=== PATIENT | male | born 1940 | race Caucasian/White ===

== ENCOUNTER → 2016-12-12 | Outpatient (CLI) | payer OTHER ==
[~2016-12-12] MED LIST: ATOR20TA PO; CHOL20002 PO; GABA300C10 PO; HYDR-882 PO; LISI-170 PO; METO10TA2 PO; METO25TA35 PO; MULT-412 PO; NAPR500T8 PO; OMEG1CAP6 PO; OMEP-110 PO; TAMS0.4C2 PO; TRAZ100T15 PO; UBID1CAP52 PO; ZOLP10TA5 PO
== END | disposition home or self-care (01) ==
LOC: STAR 10:05
PROVIDERS: ATTEND Internal Medicine
DX: Z01.810 Encounter for preprocedural cardiovascular examination (principal); K22.710 Barrett's esophagus with low grade dysplasia
CPT/HCPCS: 93005

== ENCOUNTER 2016-12-25 10:47 | Inpatient (IN) | payer OTHER ==
[~2016-12-25] VITALS: Ht 175.3 cm; Wt 77.2 kg
[2016-12-25] MEDS ORDERED: DILTIAZEM 125 MG in DEXTROSE 5% 100 ML IV SCH (11:22)
[2016-12-25] MEDS ORDERED: DILTIAZEM 5 MG/ML, 5ML IV ONE (11:30)
[2016-12-25] MEDS ORDERED: SODIUM CHLORIDE FLUSH 10ML SYR IVF ONE (11:30)
[2016-12-25] MEDS ORDERED: ASPIRIN 81 MG TABLET CHEW PO ONE (11:30)
[2016-12-25] MEDS ORDERED: ASPIRIN 81 MG TABLET CHEW ONE (11:32)
[2016-12-25] MEDS ORDERED: DILTIAZEM 5 MG/ML, 5ML ONE (11:33)
[2016-12-25 12:12] LABS: BLOOD UREA NITROGEN 12 mg/dL (7-18)
[2016-12-25 12:24] LABS: ASPARTATE AMINO TRANSFERASE 35 U/L (15-37)
[2016-12-25] MEDS ORDERED: SODIUM CHLORIDE FLUSH 10ML SYR IVF PRN (13:00)
[2016-12-25] MEDS ORDERED: ONDANSETRON ODT 4 MG PO PRN (13:30)
[2016-12-25] MEDS ORDERED: ONDANSETRON 2MG/ML, 2ML IVPush PRN (13:30)
[2016-12-25] MEDS ORDERED: LABETALOL 5MG/ML, 20ML IVPush PRN (13:30)
[2016-12-25] MEDS ORDERED: POLYETHYLENE GLYCOL 17 GM PACKET PO PRN (13:30)
[2016-12-25] MEDS ORDERED: GUAIFENESIN/DM 200-20MG, 10ML UDC PO PRN (13:30)
[2016-12-25] MEDS ORDERED: ENOXAPARIN 40 MG/0.4 ML SQ SCH (13:30)
[2016-12-25 14:14] LABS: IS PT STATUS REG ER OR PRE ER? YES
[2016-12-25] MEDS ORDERED: ALBUTEROL/IPRATROPIUM 2.5MG/0.5MG, 3 ML ONE (14:24)
[2016-12-25] MEDS: ALBUTEROL/IPRATROPIUM 2.5MG/0.5MG, 3 ML NPPB SCH ×2 (14:45→21:10)
[2016-12-25] MEDS ORDERED: ALBUTEROL/IPRATROPIUM 2.5MG/0.5MG, 3 ML NPPB SCH (15:00)
[2016-12-25] MEDS ORDERED: ALBUTEROL/IPRATROPIUM 2.5MG/0.5MG, 3 ML NPPB PRN (15:00)
[2016-12-25] MEDS ORDERED: DILTIAZEM 5 MG/ML, 5ML IVPush PRN (15:00)
[2016-12-25 15:44] VITALS: BP 130/70
[2016-12-25] MEDS: GABAPENTIN 300 MG CAPSULE PO SCH ×2 (17:48→21:50)
[2016-12-25] MEDS: SUCRALFATE 1 GM/10 ML UDC PO SCH ×2 (17:48→23:19)
[2016-12-25] MEDS: ENOXAPARIN 80 MG/0.8 ML SQ SCH (17:49)
[2016-12-25 19:31] LABS: IS PT STATUS REG ER OR PRE ER? NO
[2016-12-25 20:22] VITALS: BP_SYST 158; BP_SYST 166; BP_DIAS 72; BP_DIAS 85
[2016-12-25] MEDS ORDERED: LISINOPRIL 20 MG TABLET PO SCH (21:00)
[2016-12-25] MEDS ORDERED: ATORVASTATIN 20 MG TABLET PO SCH (21:00)
[2016-12-25] MEDS: HYDROcodone/APAP 5/325 TABLET PO PRN (21:49)
[2016-12-25] MEDS: ZOLPIDEM 10MG TABLET PO SCH (21:49)
[2016-12-25] MEDS: OMEPRAZOLE 20 MG CAPSULE.DR PO SCH (21:50)
[2016-12-25] MEDS: TAMSULOSIN 0.4 MG CAP.ER.24H PO SCH (21:50)
[2016-12-25] MEDS: ATORVASTATIN 20 MG TABLET PO SCH (21:51)
[2016-12-25] MEDS: TRAZODONE 100MG TABLET PO SCH (21:51)
[2016-12-26] MEDS: DILTIAZEM 125 MG in SODIUM CHLORIDE 0.9% 100 ML IV PRN ×2 (00:27→13:48)
[2016-12-26 03:46] VITALS: BP 128/72
[2016-12-26] MEDS: ENOXAPARIN 80 MG/0.8 ML SQ SCH (04:32)
[2016-12-26] MEDS: SUCRALFATE 1 GM/10 ML UDC PO SCH ×4 (05:42→23:35)
[2016-12-26] MEDS: ASPIRIN 81 MG TABLET EC PO SCH (05:42)
[2016-12-26 06:07] LABS: BLOOD UREA NITROGEN 14 mg/dL (7-18)
[2016-12-26 06:11] LABS: ASPARTATE AMINO TRANSFERASE 19 U/L (15-37)
[2016-12-26] MEDS: ALBUTEROL/IPRATROPIUM 2.5MG/0.5MG, 3 ML NPPB SCH ×3 (06:45→19:37)
[2016-12-26 07:11] VITALS: BP 103/65
[2016-12-26] MEDS: MULTIVITAMIN 1 TABLET PO SCH (11:54)
[2016-12-26] MEDS: CHOLECALCIFEROL 1,000 UNIT TABLET PO SCH (11:54)
[2016-12-26] MEDS: SENNA/DOCUSATE TABLET PO SCH (11:54)
[2016-12-26] MEDS: OMEPRAZOLE 20 MG CAPSULE.DR PO SCH ×2 (11:55→20:29)
[2016-12-26] MEDS: GABAPENTIN 300 MG CAPSULE PO SCH ×3 (11:55→20:29)
[2016-12-26] MEDS: DILTIAZEM 120 MG CAP.ER.12H PO SCH ×2 (12:45→20:28)
[2016-12-26 13:44] VITALS: BP 121/64
[2016-12-26] MEDS: DILTIAZEM 5 MG/ML, 5ML IVPush PRN (15:59)
[2016-12-26 18:57] VITALS: BP 164/71
[2016-12-26] MEDS: ZOLPIDEM 10MG TABLET PO SCH (20:28)
[2016-12-26] MEDS: APIXABAN 5 MG TABLET PO SCH (20:29)
[2016-12-26] MEDS: ATORVASTATIN 20 MG TABLET PO SCH (20:29)
[2016-12-26] MEDS: TAMSULOSIN 0.4 MG CAP.ER.24H PO SCH (20:30)
[2016-12-26] MEDS: TRAZODONE 100MG TABLET PO SCH (20:30)
[2016-12-27] VITALS (8 sets, daily range): BP systolic 90–176; BP diastolic 60–93
[2016-12-27] MEDS: ASPIRIN 81 MG TABLET EC PO SCH (05:30)
[2016-12-27] MEDS: SUCRALFATE 1 GM/10 ML UDC PO SCH ×4 (05:30→23:44)
[2016-12-27] MEDS ORDERED: DILTIAZEM 125 MG in SODIUM CHLORIDE 0.9% 100 ML IV PRN (08:00)
[2016-12-27] MEDS: ALBUTEROL/IPRATROPIUM 2.5MG/0.5MG, 3 ML NPPB SCH ×3 (08:00→20:38)
[2016-12-27] MEDS ORDERED: REGADENOSON 0.4 MG/5 ML SYRINGE ONE (08:10)
[2016-12-27] MEDS: OMEPRAZOLE 20 MG CAPSULE.DR PO SCH ×2 (08:39→21:32)
[2016-12-27] MEDS: APIXABAN 5 MG TABLET PO SCH ×2 (08:39→21:32)
[2016-12-27] MEDS: GABAPENTIN 300 MG CAPSULE PO SCH ×3 (08:39→21:32)
[2016-12-27] MEDS: MULTIVITAMIN 1 TABLET PO SCH (08:39)
[2016-12-27] MEDS: CHOLECALCIFEROL 1,000 UNIT TABLET PO SCH (08:39)
[2016-12-27] MEDS: DILTIAZEM 120 MG CAP.ER.12H PO SCH (08:44)
[2016-12-27] MEDS: SENNA/DOCUSATE TABLET PO SCH (08:44)
[2016-12-27] MEDS: DILTIAZEM 5 MG/ML, 5ML IVPush PRN (08:45)
[2016-12-27] MEDS ORDERED: FILTER 0.22 MICRON IV PRN (15:00)
[2016-12-27] MEDS ORDERED: AMIODARONE 150 MG in DEXTROSE 5% 100 ML IV ONE (15:00)
[2016-12-27] MEDS ORDERED: AMIODARONE 900 MG in DEXTROSE 5% 482 ML IV PRN (15:00)
[2016-12-27] MEDS ORDERED: METOPROLOL TARTRATE 25 MG TABLET PO SCH (18:00)
[2016-12-27] MEDS ORDERED: SODIUM CHLORIDE 0.9%, 500ML IVBOLUS ONE (18:30)
[2016-12-27] MEDS ORDERED: DILTIAZEM 120 MG CAP.ER.12H PO SCH (21:00)
[2016-12-27] MEDS: ATORVASTATIN 20 MG TABLET PO SCH (21:31)
[2016-12-27] MEDS: ZOLPIDEM 10MG TABLET PO SCH (21:31)
[2016-12-27] MEDS: TRAZODONE 100MG TABLET PO SCH (21:32)
[2016-12-27] MEDS: TAMSULOSIN 0.4 MG CAP.ER.24H PO SCH (21:32)
[2016-12-28 01:00] VITALS: BP 125/74
[2016-12-28 05:14] LABS: BLOOD UREA NITROGEN 16 mg/dL (7-18)
[2016-12-28] MEDS: SUCRALFATE 1 GM/10 ML UDC PO SCH ×4 (05:46→23:18)
[2016-12-28] MEDS: ASPIRIN 81 MG TABLET EC PO SCH (05:46)
[2016-12-28 06:32] VITALS: BP 140/80
[2016-12-28 09:26] LABS: IS PT STATUS REG ER OR PRE ER? NO
[2016-12-28] MEDS ORDERED: LORATADINE 10 MG TABLET PO PRN (09:30)
[2016-12-28] MEDS: APIXABAN 5 MG TABLET PO SCH ×2 (10:00→21:26)
[2016-12-28] MEDS: CHOLECALCIFEROL 1,000 UNIT TABLET PO SCH (10:00)
[2016-12-28] MEDS: SENNA/DOCUSATE TABLET PO SCH (10:00)
[2016-12-28] MEDS: OMEPRAZOLE 20 MG CAPSULE.DR PO SCH ×2 (10:00→21:26)
[2016-12-28] MEDS ORDERED: METOPROLOL TARTRATE 25 MG TABLET PO SCH ×2 (10:00→16:00)
[2016-12-28] MEDS: GABAPENTIN 300 MG CAPSULE PO SCH ×3 (10:00→21:26)
[2016-12-28] MEDS: AMIODARONE 200 MG TABLET PO SCH ×2 (10:00→21:26)
[2016-12-28] MEDS: MULTIVITAMIN 1 TABLET PO SCH (10:00)
[2016-12-28] MEDS ORDERED: METOPROLOL TARTRATE 25 MG TABLET PO ONE (10:09)
[2016-12-28] MEDS: ALBUTEROL/IPRATROPIUM 2.5MG/0.5MG, 3 ML NPPB SCH ×3 (10:13→22:30)
[2016-12-28 13:59] VITALS: BP 155/92
[2016-12-28] MEDS: METOPROLOL TARTRATE 25 MG TABLET PO SCH ×2 (16:47→23:18)
[2016-12-28] MEDS ORDERED: CEFTRIAXONE 500 MG in DEXTROSE 5% 50 ML IV SCH (17:00)
[2016-12-28 18:28] LABS: PATH.CAST-FLAG NOT PRESENT; SPERM-FLAG NOT PRESENT; SRC-FLAG NOT PRESENT; XTAL-FLAG NOT PRESENT; YLC-FLAG NOT PRESENT
[2016-12-28 18:52] VITALS: BP 127/74
[2016-12-28] MEDS: ATORVASTATIN 20 MG TABLET PO SCH (21:25)
[2016-12-28] MEDS: HYDROcodone/APAP 5/325 TABLET PO PRN (21:26)
[2016-12-28] MEDS: TAMSULOSIN 0.4 MG CAP.ER.24H PO SCH (21:26)
[2016-12-28] MEDS: ZOLPIDEM 10MG TABLET PO SCH (23:17)
[2016-12-28] MEDS: TRAZODONE 100MG TABLET PO SCH (23:18)
[2016-12-28 23:30] VITALS: BP 144/75
[2016-12-29 04:00] VITALS: BP 132/73
[2016-12-29] MEDS: METOPROLOL TARTRATE 25 MG TABLET PO SCH (04:47)
[2016-12-29] MEDS: ASPIRIN 81 MG TABLET EC PO SCH (04:47)
[2016-12-29] MEDS: SUCRALFATE 1 GM/10 ML UDC PO SCH ×2 (04:47→12:27)
[2016-12-29 07:16] LABS: BLOOD UREA NITROGEN 12 mg/dL (7-18)
[2016-12-29] MEDS: OMEPRAZOLE 20 MG CAPSULE.DR PO SCH (08:56)
[2016-12-29] MEDS: MULTIVITAMIN 1 TABLET PO SCH (08:57)
[2016-12-29] MEDS: CHOLECALCIFEROL 1,000 UNIT TABLET PO SCH (08:57)
[2016-12-29] MEDS: GABAPENTIN 300 MG CAPSULE PO SCH (08:57)
[2016-12-29] MEDS: APIXABAN 5 MG TABLET PO SCH (08:58)
[2016-12-29] MEDS: AMIODARONE 200 MG TABLET PO SCH (08:59)
[2016-12-29] MEDS: SENNA/DOCUSATE TABLET PO SCH (08:59)
[2016-12-29] MEDS ORDERED: METOPROLOL SUCCINATE 100 MG TAB.ER.24H PO SCH ×2 (09:00→11:00)
[2016-12-29 09:21] VITALS: BP 155/89
[2016-12-29] MEDS ORDERED: ASPI-621 PO (10:28)
[2016-12-29] MEDS ORDERED: APIX5TAB PO (10:28)
[2016-12-29] MEDS ORDERED: METO100T5 PO (10:28)
[2016-12-29] MEDS ORDERED: AMIO200T42 PO (10:28)
[2016-12-29] MEDS ORDERED: SUCR1TAB PO (10:28)
[2016-12-29] MEDS ORDERED: AMOX875T PO (10:28)
[2016-12-29] MEDS ORDERED: DILTIAZEM 120 MG CAP.ER.24H PO SCH (11:00)
[2016-12-29] MEDS ORDERED: DILT120C2 PO (12:46)
== END 2016-12-29 13:39 | disposition home or self-care (01) | DRG 281 ==
LOC: ED 11:41 → EDIP 12:47 → 5SO 15:33
PROVIDERS: ADMIT Hospitalist; ATTEND Family Medicine
DX: I48.91 Unspecified atrial fibrillation (principal); I21.4 Non-ST elevation (NSTEMI) myocardial infarction; D68.69 Other thrombophilia; E78.5 Hyperlipidemia, unspecified; E11.649 Type 2 diabetes mellitus with hypoglycemia without coma; E11.65 Type 2 diabetes mellitus with hyperglycemia; G47.00 Insomnia, unspecified; G89.29 Other chronic pain; I11.9 Hypertensive heart disease without heart failure; I25.2 Old myocardial infarction; I49.3 Ventricular premature depolarization; M54.9 Dorsalgia, unspecified; K21.9 Gastro-esophageal reflux disease without esophagitis; K22.70 Barrett's esophagus without dysplasia; K29.70 Gastritis, unspecified, without bleeding; Z79.01 Long term (current) use of anticoagulants; Z79.82 Long term (current) use of aspirin; Z79.899 Other long term (current) drug therapy; Z82.49 Family history of ischemic heart disease and other diseases of the circulatory system; Z83.3 Family history of diabetes mellitus; Z85.46 Personal history of malignant neoplasm of prostate; Z87.440 Personal history of urinary (tract) infections; Z87.891 Personal history of nicotine dependence; Z90.79 Acquired absence of other genital organ(s); Z92.3 Personal history of irradiation; Z87.01 Personal history of pneumonia (recurrent)
CPT/HCPCS: 36415; 71010; 78452; 80048; 80053; 80061; 81001; 82962; 83036; 83605; 83735; 83880; 84436; 84439; 84443; 84484; 85025; 85610; 85730; 87040; 87324; 92960; 93005; 93017; 93306; 94640; 96374; 96375; J0696; J1650; J2785; J7620; A9502; C9898; J0282; J7040; J7060

== ENCOUNTER 2017-06-06 03:11 | Emergency (ER) | payer OTHER ==
[~2017-06-06] VITALS: Ht 172.7 cm; Wt 79.5 kg
[~2017-06-06 03:11] MED LIST changes: +AMIO200T42 PO; +AMOX875T PO; +APIX5TAB PO; +ASPI-621 PO; +DILT120C2 PO; +METO100T5 PO; +SUCR1TAB PO
[2017-06-06] MEDS ORDERED: methylPREDNISolone SOD SUCC 125 MG/2 ML ONE (04:11)
[2017-06-06 04:28] LABS: HEMATOCRIT 40.5 % (39.2-51.8); HEMOGLOBIN 13.2 g/dL (13.7-18.0); WHITE BLOOD COUNT 10.1 x10^3/uL (3.4-10)
[2017-06-06] MEDS ORDERED: methylPREDNISolone SOD SUCC 125 MG/2 ML IVP ONE (04:30)
[2017-06-06 04:34] LABS: BLOOD UREA NITROGEN 15 mg/dL (7-18)
[2017-06-06 05:43] VITALS: BP 110/78
== END 2017-06-06 06:23 | disposition home or self-care (01) ==
LOC: ED 03:38
DX: J44.1 Chronic obstructive pulmonary disease with (acute) exacerbation (principal); I10 Essential (primary) hypertension
CPT/HCPCS: 36415; 71010; 80048; 82040; 85025; 96374; 99285; J2930

== ENCOUNTER 2017-10-28 11:53 | Day surgery (SDC) | payer OTHER ==
[~2017-10-28] VITALS: Ht 170.2 cm; Wt 79.7 kg
[~2017-10-28 11:53] MED LIST changes: +AMLO5TAB2 PO; +FLUT1AER INH; +LOSA100T6 PO; +METO-95 PO; +OXYGEN NAS; +UMEC1DIS INH
[2017-10-28 13:10] VITALS: BP 109/70
[2017-10-28] MEDS ORDERED: LACTATED RINGERS 1,000 ML IV SCH (13:11)
[2017-10-28] MEDS ORDERED: PROPOFOL 10 MG/ML, 20ML ONE (15:23)
[2017-10-28] MEDS ORDERED: HYDROcodone/APAP 7.5-325MG/15ML UDC PO PRN (15:30)
[2017-10-28] MEDS ORDERED: OXYcodone 5 MG/5 ML ORAL.SOL UDC PO PRN (15:30)
[2017-10-28] MEDS ORDERED: morphine SULFATE 10 MG/ML, 1ML IV PRN (15:30)
[2017-10-28] MEDS ORDERED: PROMETHAZINE 25 MG/ML, 1ML IV PRN (15:30)
[2017-10-28] MEDS ORDERED: FENTANYL PF 100 MCG/2ML IV PRN (15:30)
[2017-10-28] MEDS ORDERED: ONDANSETRON 2MG/ML, 2ML IVPush PRN (15:30)
[2017-10-28] MEDS ORDERED: ACETAMINOPHEN 325 MG TABLET PO PRN (15:30)
== END 2017-10-28 17:10 ==
LOC: OUT 11:53
PROVIDERS: ATTEND Internal Medicine
DX: K22.710 Barrett's esophagus with low grade dysplasia (principal); I10 Essential (primary) hypertension; E78.5 Hyperlipidemia, unspecified; N40.0 Benign prostatic hyperplasia without lower urinary tract symptoms; K44.9 Diaphragmatic hernia without obstruction or gangrene; M79.1 Myalgia; J44.9 Chronic obstructive pulmonary disease, unspecified; Z87.39 Personal history of other diseases of the musculoskeletal system and connective tissue; Z87.891 Personal history of nicotine dependence; Z72.89 Other problems related to lifestyle
CPT/HCPCS: 43270; J2704; J7120

== ENCOUNTER 2017-11-25 08:19 | Inpatient (IN) | payer OTHER ==
[~2017-11-25] VITALS: Ht 172.7 cm; Wt 84.5 kg
[2017-11-25] MEDS ORDERED: ALBUTEROL/IPRATROPIUM 2.5MG/0.5MG, 3 ML ONE ×2 (08:30→11:14)
[2017-11-25] MEDS ORDERED: methylPREDNISolone SOD SUCC 125 MG/2 ML IVP ONE (08:30)
[2017-11-25] MEDS ORDERED: SODIUM CHLORIDE FLUSH 10ML SYR IVF ONE (08:30)
[2017-11-25 08:58] LABS: BASOPHILS # (AUTO) 0.02 x10^3/uL (0-0.1); BASOPHILS % (AUTO) 0 % (0-1); EOSINOPHILS # (AUTO) 0.09 x10^3/uL (0-0.4); EOSINOPHILS % (AUTO) 1 % (1-7); LYMPHOCYTES # (AUTO) 0.97 x10^3/uL (1-3.4); LYMPHOCYTES % (AUTO) 7 % (22-44); MD NO; MEAN CORPUSCULAR HEMOGLOBIN 28.3 pg (27.5-34.5); MEAN CORPUSCULAR HGB CONC 32.8 g/dL (33.2-36.2); MEAN CORPUSCULAR VOLUME 86.2 fL (81-97); MEAN PLATELET VOLUME 7.4 fL (7.4-10.4); MONOCYTES # (AUTO) 0.24 x10^3/uL (0.2-0.8); MONOCYTES % (AUTO) 2 % (2-9); NEUTROPHILS # (AUTO) 12.24 x10^3/uL (1.8-6.8); NEUTROPHILS % (AUTO) 90 % (42-75); PLATELET COUNT 378 x10^3/uL (130-400)
[2017-11-25] MEDS ORDERED: MAGNESIUM SULFATE PMX 2GM/50ML 50 ML IV ONE (09:00)
[2017-11-25] MEDS ORDERED: LORazepam 2 MG/ML, 1ML ONE (09:08)
[2017-11-25 09:11] LABS: ALBUMIN 3.5 g/dL (3.4-5.0); ANION GAP 10 mmol/L (5-15); CHLORIDE 102 mmol/L (98-107)
[2017-11-25 09:16] LABS: ALANINE AMINOTRANSFERASE 27 U/L (12-78); ALKALINE PHOSPHATASE 86 U/L (45-117); BILIRUBIN,TOTAL 0.6 mg/dL (0.2-1.0); CREATININE 0.92 mg/dL (0.7-1.3); TOTAL PROTEIN 7.1 g/dL (6.4-8.2); TROPONIN I < 0.015 ng/mL (0.000-0.045)
[2017-11-25] MEDS ORDERED: LORazepam 2 MG/ML, 1ML IVPush ONE (09:30)
[2017-11-25] MEDS ORDERED: CEFTRIAXONE PMX 1GM/50ML 50 ML IV ONE (09:30)
[2017-11-25] MEDS ORDERED: ACETAMINOPHEN 500 MG TABLET PO ONE (09:30)
[2017-11-25] MEDS ORDERED: CEFTRIAXONE PMX 1GM/50ML 50 ML ONE (09:31)
[2017-11-25] MEDS ORDERED: ACETAMINOPHEN 500 MG TABLET ONE (09:41)
[2017-11-25] MEDS: ALBUTEROL/IPRATROPIUM 2.5MG/0.5MG, 3 ML NPPB SCH ×3 (11:29→20:00)
[2017-11-25] MEDS: SODIUM CHLORIDE 0.9% 1,000 ML IV SCH ×3 (11:30→21:30)
[2017-11-25 11:36] VITALS: BP 134/82
[2017-11-25] MEDS ORDERED: ACETAMINOPHEN 325 MG TABLET PO PRN (12:00)
[2017-11-25] MEDS ORDERED: ONDANSETRON ODT 4 MG PO PRN (12:00)
[2017-11-25] MEDS ORDERED: morphine SULFATE 10 MG/ML, 1ML IVPush PRN (12:00)
[2017-11-25] MEDS ORDERED: hydrALAzine 20 MG/ML, 1ML IVPush PRN (12:00)
[2017-11-25] MEDS ORDERED: ONDANSETRON 2MG/ML, 2ML IVPush PRN (12:00)
[2017-11-25 12:14] LABS: FREE T4 (FREE THYROXINE) 1.2 ng/dL (0.76-1.46); THYROID STIMULATING HORMONE 0.536 mIU/L (0.358-3.740)
[2017-11-25] MEDS ORDERED: OMNIPAQUE 350 MG/ML, 100ML BOTTLE ONE (12:14)
[2017-11-25] MEDS: AZITHROMYCIN 500 MG in SODIUM CHLORIDE 0.9% 250 ML IV SCH (12:21)
[2017-11-25] MEDS: ENOXAPARIN 40 MG/0.4 ML SQ SCH (12:21)
[2017-11-25] MEDS: methylPREDNISolone SOD SUCC 125 MG/2 ML IVPush SCH ×2 (12:21→18:08)
[2017-11-25] MEDS: HYDROcodone/APAP 5/325 TABLET PO PRN ×2 (12:22→21:46)
[2017-11-25 12:34] LABS: HEMOGLOBIN A1C 6.8 % (4.2-6.3)
[2017-11-25 13:13] LABS: CULTURE INDICATED? NO; MICROSCOPIC NOT IND
[2017-11-25 13:58] VITALS: BP 109/70
[2017-11-25] MEDS: INSULIN LISPRO 100 UNITS/ML, PEN SQ-INSULIN SCH ×2 (17:10→21:43)
[2017-11-25] MEDS: GUAIFENESIN 200 MG TABLET PO SCH ×2 (17:27→21:47)
[2017-11-25 20:00] VITALS: BP 116/68
[2017-11-25] MEDS: CEFTRIAXONE PMX 2GM/50ML 50 ML IV SCH (21:46)
[2017-11-25] MEDS: METOCLOPRAMIDE 10MG TABLET PO SCH (21:47)
[2017-11-25] MEDS: GABAPENTIN 300 MG CAPSULE PO SCH (21:47)
[2017-11-25] MEDS: OMEPRAZOLE 20 MG CAPSULE.DR PO SCH (21:47)
[2017-11-25] MEDS: AMLODIPINE 5 MG TABLET PO SCH (21:47)
[2017-11-25] MEDS: TAMSULOSIN 0.4 MG CAP.ER.24H PO SCH (21:47)
[2017-11-25] MEDS: ATORVASTATIN 20 MG TABLET PO SCH (21:50)
[2017-11-26] MEDS: methylPREDNISolone SOD SUCC 125 MG/2 ML IVPush SCH ×5 (00:48→23:48)
[2017-11-26] MEDS: SODIUM CHLORIDE 0.9% 1,000 ML IV SCH ×5 (00:50→22:24)
[2017-11-26] MEDS: HYDROcodone/APAP 5/325 TABLET PO PRN ×3 (00:56→22:23)
[2017-11-26] MEDS: TEMAZEPAM 15 MG CAPSULE PO PRN ×3 (00:56→23:45)
[2017-11-26 02:00] VITALS: BP 133/64
[2017-11-26 05:00] LABS: BASOPHILS % (AUTO) 0 % (0-1); EOSINOPHILS % (AUTO) 0 % (1-7); LYMPHOCYTES # (AUTO) 0.74 x10^3/uL (1-3.4); LYMPHOCYTES % (AUTO) 4 % (22-44); MD NO; MEAN CORPUSCULAR HEMOGLOBIN 28.3 pg (27.5-34.5); MEAN CORPUSCULAR HGB CONC 32.9 g/dL (33.2-36.2); MEAN PLATELET VOLUME 7.7 fL (7.4-10.4); MONOCYTES # (AUTO) 0.27 x10^3/uL (0.2-0.8); MONOCYTES % (AUTO) 2 % (2-9); NEUTROPHILS # (AUTO) 16.57 x10^3/uL (1.8-6.8); NEUTROPHILS % (AUTO) 94 % (42-75); PLATELET COUNT 270 x10^3/uL (130-400); RED BLOOD COUNT 3.45 x10^6/uL (4.38-5.82); RED CELL DISTRIBUTION WIDTH 16.4 % (9.4-14.8)
[2017-11-26 05:14] LABS: ALBUMIN 2.8 g/dL (3.4-5.0); ANION GAP 7 mmol/L (5-15); CHLORIDE 107 mmol/L (98-107)
[2017-11-26 05:33] LABS: ALANINE AMINOTRANSFERASE 21 U/L (12-78); ALKALINE PHOSPHATASE 49 U/L (45-117); BILIRUBIN,TOTAL 0.3 mg/dL (0.2-1.0); CALCIUM 8.3 mg/dL (8.5-10.1); CREATININE 0.69 mg/dL (0.7-1.3)
[2017-11-26 05:39] LABS: HEMOGLOBIN A1C 6.5 % (4.2-6.3)
[2017-11-26] MEDS: ASPIRIN 81 MG TABLET EC PO SCH (07:36)
[2017-11-26] MEDS: OMEPRAZOLE 20 MG CAPSULE.DR PO SCH ×2 (07:36→22:23)
[2017-11-26] MEDS: INSULIN LISPRO 100 UNITS/ML, PEN SQ-INSULIN SCH ×4 (07:36→22:27)
[2017-11-26 07:37] VITALS: BP 143/84
[2017-11-26] MEDS: GABAPENTIN 300 MG CAPSULE PO SCH ×2 (07:37→22:22)
[2017-11-26] MEDS: CHOLECALCIFEROL 1,000 UNIT TABLET PO SCH (07:37)
[2017-11-26] MEDS: PANTOPROZOLE 40MG TABLET PO SCH (07:37)
[2017-11-26] MEDS: GUAIFENESIN 200 MG TABLET PO SCH ×3 (07:37→22:23)
[2017-11-26] MEDS: METOCLOPRAMIDE 10MG TABLET PO SCH (07:40)
[2017-11-26] MEDS: LOSARTAN 50MG TABLET PO SCH (07:40)
[2017-11-26] MEDS: ALBUTEROL/IPRATROPIUM 2.5MG/0.5MG, 3 ML NPPB SCH ×4 (08:01→19:29)
[2017-11-26] MEDS ORDERED: METOPROLOL SUCCINATE 100 MG TAB.ER.24H PO SCH (09:00)
[2017-11-26] MEDS: ENOXAPARIN 40 MG/0.4 ML SQ SCH (12:24)
[2017-11-26] MEDS: AZITHROMYCIN 500 MG in SODIUM CHLORIDE 0.9% 250 ML IV SCH (12:24)
[2017-11-26] MEDS ORDERED: METOPROLOL SUCCINATE 50 MG TAB.ER.24H PO ONE (15:00)
[2017-11-26 15:15] VITALS: BP 148/80
[2017-11-26 20:00] VITALS: BP 106/80
[2017-11-26] MEDS ORDERED: HEMORRHOIDAL OINT, 28 GM (PREP H) RC PRN (21:30)
[2017-11-26] MEDS: ATORVASTATIN 20 MG TABLET PO SCH (22:22)
[2017-11-26] MEDS: CEFTRIAXONE PMX 2GM/50ML 50 ML IV SCH (22:22)
[2017-11-26] MEDS: TAMSULOSIN 0.4 MG CAP.ER.24H PO SCH (22:23)
[2017-11-26] MEDS: AMLODIPINE 5 MG TABLET PO SCH (22:23)
[2017-11-27 02:00] VITALS: BP 151/77
[2017-11-27] MEDS: SODIUM CHLORIDE 0.9% 1,000 ML IV SCH ×3 (03:30→17:56)
[2017-11-27] MEDS: methylPREDNISolone SOD SUCC 125 MG/2 ML IVPush SCH ×3 (06:13→21:18)
[2017-11-27] MEDS: ALBUTEROL/IPRATROPIUM 2.5MG/0.5MG, 3 ML NPPB SCH ×4 (07:55→20:00)
[2017-11-27] MEDS: PANTOPROZOLE 40MG TABLET PO SCH (08:27)
[2017-11-27] MEDS: INSULIN LISPRO 100 UNITS/ML, PEN SQ-INSULIN SCH ×4 (08:27→21:21)
[2017-11-27] MEDS: GUAIFENESIN 200 MG TABLET PO SCH ×3 (08:27→21:18)
[2017-11-27] MEDS: GABAPENTIN 300 MG CAPSULE PO SCH ×2 (08:27→21:18)
[2017-11-27] MEDS: OMEPRAZOLE 20 MG CAPSULE.DR PO SCH (08:28)
[2017-11-27] MEDS: METOPROLOL SUCCINATE 50 MG TAB.ER.24H PO SCH (08:28)
[2017-11-27] MEDS: ASPIRIN 81 MG TABLET EC PO SCH (08:28)
[2017-11-27] MEDS: LOSARTAN 50MG TABLET PO SCH (08:28)
[2017-11-27] MEDS: CHOLECALCIFEROL 1,000 UNIT TABLET PO SCH (08:28)
[2017-11-27] MEDS: HYDROcodone/APAP 5/325 TABLET PO PRN ×2 (09:54→21:18)
[2017-11-27 11:05] VITALS: BP 149/84
[2017-11-27] MEDS: ENOXAPARIN 40 MG/0.4 ML SQ SCH (12:00)
[2017-11-27] MEDS: AZITHROMYCIN 500 MG in SODIUM CHLORIDE 0.9% 250 ML IV SCH (13:43)
[2017-11-27 14:10] VITALS: BP 163/88
[2017-11-27] MEDS: METOCLOPRAMIDE 10MG TABLET PO SCH (15:53)
[2017-11-27 18:30] VITALS: BP 150/98
[2017-11-27] MEDS: ATORVASTATIN 20 MG TABLET PO SCH (21:18)
[2017-11-27] MEDS: TAMSULOSIN 0.4 MG CAP.ER.24H PO SCH (21:18)
[2017-11-27] MEDS: CEFTRIAXONE PMX 2GM/50ML 50 ML IV SCH (21:18)
[2017-11-27] MEDS: AMLODIPINE 5 MG TABLET PO SCH (21:18)
[2017-11-28] VITALS (7 sets, daily range): BP systolic 137–185; BP diastolic 64–98
[2017-11-28] MEDS: methylPREDNISolone SOD SUCC 125 MG/2 ML IVPush SCH ×4 (02:05→21:00)
[2017-11-28] MEDS ORDERED: METOPROLOL 1 MG/ML, 5ML ONE (02:56)
[2017-11-28] MEDS ORDERED: DILTIAZEM 5 MG/ML, 5ML IVPush ONE (03:00)
[2017-11-28] MEDS ORDERED: METOPROLOL 1 MG/ML, 5ML IVPush ONE (03:00)
[2017-11-28] MEDS: SODIUM CHLORIDE 0.9% 1,000 ML IV SCH (05:08)
[2017-11-28] MEDS: DILTIAZEM 30 MG TABLET PO SCH ×2 (05:08→11:00)
[2017-11-28 05:52] LABS: BASOPHILS # (AUTO) 0.01 x10^3/uL (0-0.1); BASOPHILS % (AUTO) 0 % (0-1); EOSINOPHILS % (AUTO) 0 % (1-7); LYMPHOCYTES # (AUTO) 0.71 x10^3/uL (1-3.4); LYMPHOCYTES % (AUTO) 5 % (22-44); MD NO; MEAN CORPUSCULAR HEMOGLOBIN 28.9 pg (27.5-34.5); MEAN CORPUSCULAR HGB CONC 33.9 g/dL (33.2-36.2); MEAN CORPUSCULAR VOLUME 85.3 fL (81-97); MONOCYTES # (AUTO) 0.41 x10^3/uL (0.2-0.8); MONOCYTES % (AUTO) 3 % (2-9); NEUTROPHILS # (AUTO) 12.66 x10^3/uL (1.8-6.8); NEUTROPHILS % (AUTO) 92 % (42-75); PLATELET COUNT 324 x10^3/uL (130-400); RED CELL DISTRIBUTION WIDTH 16.4 % (9.4-14.8)
[2017-11-28 05:58] LABS: ALANINE AMINOTRANSFERASE 42 U/L (12-78); ALBUMIN 3.3 g/dL (3.4-5.0); ANION GAP 8 mmol/L (5-15); CALCIUM 8.8 mg/dL (8.5-10.1); CHLORIDE 103 mmol/L (98-107); CREATININE 0.65 mg/dL (0.7-1.3)
[2017-11-28 06:00] LABS: ALKALINE PHOSPHATASE 56 U/L (45-117); BILIRUBIN,TOTAL 0.6 mg/dL (0.2-1.0)
[2017-11-28] MEDS: ALBUTEROL/IPRATROPIUM 2.5MG/0.5MG, 3 ML NPPB SCH ×4 (07:34→19:01)
[2017-11-28] MEDS: INSULIN LISPRO 100 UNITS/ML, PEN SQ-INSULIN SCH ×4 (08:53→21:44)
[2017-11-28] MEDS: METOPROLOL SUCCINATE 50 MG TAB.ER.24H PO SCH (08:54)
[2017-11-28] MEDS: HYDROcodone/APAP 5/325 TABLET PO PRN ×2 (08:54→20:45)
[2017-11-28] MEDS: GUAIFENESIN 200 MG TABLET PO SCH ×3 (08:54→21:45)
[2017-11-28] MEDS: METOCLOPRAMIDE 10MG TABLET PO SCH (08:54)
[2017-11-28] MEDS: GABAPENTIN 300 MG CAPSULE PO SCH ×2 (08:55→21:45)
[2017-11-28] MEDS: ASPIRIN 81 MG TABLET EC PO SCH (08:55)
[2017-11-28] MEDS: PANTOPROZOLE 40MG TABLET PO SCH (08:55)
[2017-11-28] MEDS: CHOLECALCIFEROL 1,000 UNIT TABLET PO SCH (08:55)
[2017-11-28] MEDS: LOSARTAN 50MG TABLET PO SCH (08:55)
[2017-11-28] MEDS: DOXYCYCLINE 100MG TABLET PO SCH ×2 (12:18→21:46)
[2017-11-28] MEDS: ENOXAPARIN 40 MG/0.4 ML SQ SCH (12:18)
[2017-11-28] MEDS ORDERED: FILTER 0.22 MICRON IV PRN (15:00)
[2017-11-28] MEDS ORDERED: AMIODARONE 150 MG in DEXTROSE 5% 100 ML IV ONE (15:00)
[2017-11-28] MEDS: AMIODARONE 450 MG in DEXTROSE 5% 241 ML IV PRN ×2 (16:56→23:54)
[2017-11-28] MEDS ORDERED: DILTIAZEM 60 MG TABLET PO SCH (17:00)
[2017-11-28] MEDS ORDERED: RIVAROXABAN 20 MG TABLET PO SCH (17:00)
[2017-11-28] MEDS: TEMAZEPAM 15 MG CAPSULE PO PRN (21:45)
[2017-11-28] MEDS: ATORVASTATIN 20 MG TABLET PO SCH (21:45)
[2017-11-28] MEDS: AMLODIPINE 5 MG TABLET PO SCH (21:46)
[2017-11-28] MEDS: TAMSULOSIN 0.4 MG CAP.ER.24H PO SCH (21:46)
[2017-11-28] MEDS: CEFTRIAXONE PMX 2GM/50ML 50 ML IV SCH (21:50)
[2017-11-29 01:35] VITALS: BP 155/56
[2017-11-29] MEDS: methylPREDNISolone SOD SUCC 125 MG/2 ML IVPush SCH ×2 (03:34→10:37)
[2017-11-29] MEDS: HYDROcodone/APAP 5/325 TABLET PO PRN (03:35)
[2017-11-29 05:06] LABS: ANION GAP 8 mmol/L (5-15); CHLORIDE 100 mmol/L (98-107); CREATININE 0.61 mg/dL (0.7-1.3)
[2017-11-29 05:17] LABS: BASOPHILS # (AUTO) 0.01 x10^3/uL (0-0.1); BASOPHILS % (AUTO) 0 % (0-1); EOSINOPHILS % (AUTO) 0 % (1-7); LYMPHOCYTES # (AUTO) 0.76 x10^3/uL (1-3.4); LYMPHOCYTES % (AUTO) 8 % (22-44); MD NO; MEAN CORPUSCULAR HEMOGLOBIN 28.3 pg (27.5-34.5); MEAN CORPUSCULAR HGB CONC 32.9 g/dL (33.2-36.2); MEAN PLATELET VOLUME 7.8 fL (7.4-10.4); MONOCYTES % (AUTO) 4 % (2-9); NEUTROPHILS # (AUTO) 8.19 x10^3/uL (1.8-6.8); NEUTROPHILS % (AUTO) 88 % (42-75); PLATELET COUNT 291 x10^3/uL (130-400); RED BLOOD COUNT 3.76 x10^6/uL (4.38-5.82); RED CELL DISTRIBUTION WIDTH 16.5 % (9.4-14.8)
[2017-11-29] MEDS: ALBUTEROL/IPRATROPIUM 2.5MG/0.5MG, 3 ML NPPB SCH ×2 (07:02→11:07)
[2017-11-29 09:30] VITALS: BP 188/97
[2017-11-29] MEDS ORDERED: POTASSIUM CHLORIDE 20 MEQ TAB.ER.PRT PO ONE (10:00)
[2017-11-29] MEDS ORDERED: AMIODARONE 200 MG TABLET PO SCH (10:00)
[2017-11-29] MEDS: INSULIN LISPRO 100 UNITS/ML, PEN SQ-INSULIN SCH (10:11)
[2017-11-29] MEDS ORDERED: DOXY100C15 PO (10:31)
[2017-11-29] MEDS ORDERED: PRED10TA PO (10:31)
[2017-11-29] MEDS ORDERED: PHEN28OI6 RC (10:31)
[2017-11-29] MEDS ORDERED: METO-95 PO (10:31)
[2017-11-29] MEDS ORDERED: RIVA20TA PO (10:31)
[2017-11-29] MEDS ORDERED: CEFD300C37 PO (10:31)
[2017-11-29] MEDS ORDERED: ONDA4TAB13 PO (10:31)
[2017-11-29] MEDS: CHOLECALCIFEROL 1,000 UNIT TABLET PO SCH (10:39)
[2017-11-29] MEDS: DOXYCYCLINE 100MG TABLET PO SCH (10:40)
[2017-11-29] MEDS: LOSARTAN 50MG TABLET PO SCH (10:42)
[2017-11-29] MEDS: METOCLOPRAMIDE 10MG TABLET PO SCH (10:43)
[2017-11-29] MEDS: GUAIFENESIN 200 MG TABLET PO SCH (10:44)
[2017-11-29] MEDS ORDERED: AMIO200T42 PO (10:45)
[2017-11-29] MEDS: GABAPENTIN 300 MG CAPSULE PO SCH (10:46)
[2017-11-29] MEDS: PANTOPROZOLE 40MG TABLET PO SCH (10:48)
[2017-11-29] MEDS: METOPROLOL SUCCINATE 50 MG TAB.ER.24H PO SCH (11:46)
== END 2017-11-29 12:05 | disposition home or self-care (01) | DRG 871 ==
LOC: ED 10:13 → EDIP 10:14 → ED 10:20 → 4WST 10:55
PROVIDERS: ADMIT Internal Medicine; ATTEND Internal Medicine
PROC: 5A09357 Assistance with Respiratory Ventilation, Less than 24 Consecutive Hours, Continuous Positive Airway Pressure (ICD-10-PCS; principal; 2017-11-25)
DX: A41.9 Sepsis, unspecified organism (principal); J96.21 Acute and chronic respiratory failure with hypoxia; I47.2 Ventricular tachycardia; J15.0 Pneumonia due to Klebsiella pneumoniae; D68.69 Other thrombophilia; E87.1 Hypo-osmolality and hyponatremia; I45.81 Long QT syndrome; I48.0 Paroxysmal atrial fibrillation; J44.0 Chronic obstructive pulmonary disease with (acute) lower respiratory infection; E11.9 Type 2 diabetes mellitus without complications; Z99.81 Dependence on supplemental oxygen; J44.1 Chronic obstructive pulmonary disease with (acute) exacerbation; I10 Essential (primary) hypertension; I25.10 Atherosclerotic heart disease of native coronary artery without angina pectoris; K64.9 Unspecified hemorrhoids; F12.90 Cannabis use, unspecified, uncomplicated; G89.29 Other chronic pain; M54.9 Dorsalgia, unspecified; E78.5 Hyperlipidemia, unspecified; K22.70 Barrett's esophagus without dysplasia; I25.2 Old myocardial infarction; Z79.01 Long term (current) use of anticoagulants; Z82.49 Family history of ischemic heart disease and other diseases of the circulatory system; Z85.46 Personal history of malignant neoplasm of prostate; Z87.440 Personal history of urinary (tract) infections; Z87.891 Personal history of nicotine dependence; Z90.79 Acquired absence of other genital organ(s); Z98.41 Cataract extraction status, right eye
CPT/HCPCS: 36415; 36600; 71045; 71275; 80048; 80053; 81003; 82803; 82962; 83036; 83605; 83735; 83880; 84100; 84439; 84443; 84484; 85025; 87040; 87070; 87077; 87186; 87205; 93005; 93306; 94640; 94660; 96365; 96368; 96375; J0456; J0696; J1650; J7060; J7620; Q9967; J0282; J1815; J2060; J2270; J2930; J3475; J7030; J7050